=== PATIENT | female | born 1950 | race African-American/Black ===

== ENCOUNTER 2017-10-25 01:42 | Emergency (ER) | payer OTHER ==
--- NOTE | 2017-10-25 02:07 | PDOC ---
History of Present Illness - General Stated Complaint: CHEST PAIN Time Seen by Provider: 10/25/17 02:02 History Source: Patient - History of Present Illness Initial Comments: 10/25/17 04:31 67-year-old female with a history of hypertension and CAD presents to the emergency department with her daughter complaining of substernal 8/10 dull intermittent discomfort radiating to the left arm 2 hours while laying in bed resting. Patient states pain is exacerbated with movements and deep inspiration and there are no alleviating factors. Patient took a total of 2 nitroglycerin sublingual 0.4 mg tablets prior to her arrival. One tablet was taken one hour ago without relief. The second tablet was taken approximately 30 minutes ago prior to her arrival to the emergency department without relief. Patient states she usually can take 1 sublingual nitroglycerin tablet which will cause her to belch but the pain was subside. Patient denies nausea/vomiting, fever/chills, visual disturbance, neck pain/stiffness, back pains, shortness of breath, abdominal pains, flank pains, urinary symptoms, prolonged sitting, recent travels. Presenting Symptoms: Chest Pain Past History - Past Medical History Allergies/Adverse Reactions: Allergies Allergy/AdvReac Type Severity Reaction Status Date / Time No Known Allergies Allergy Verified 10/25/17 02:51 Home Medications: Ambulatory Orders Naproxen [Naprosyn -] 500 mg PO HS 06/06/16 Omeprazole 20 mg PO DAILY 06/06/16 Triamterene/Hydrochlorothiazid [Triamterene-Hctz 37.5-25 mg Cp] 1 each PO DAILY 06/06/16 Tramadol HCl [Ultram -] 50 mg PO Q6H #20 tablet MDD 4 06/07/16 HTN: Yes - Suicide/Smoking/Psychosocial Hx Smoking Status: No Smoking History: Never smoked Number of Cigarettes Smoked Daily: 0 Review of Systems - Review of Systems Able to Perform ROS?: Yes Comments:: 10/25/17 04:33 CONSTITUTIONAL: Absent: fever, chills, diaphoresis, generalized weakness, malaise, loss of appetite HEENT: Absent: rhinorrhea, nasal congestion, throat pain, throat swelling, difficulty swallowing, mouth swelling, ear pain, eye pain, visual Changes CARDIOVASCULAR: +CP Absent: loss of consciousness, palpitations, irregular heart rate, peripheral edema RESPIRATORY: Absent: cough, shortness of breath, dyspnea with exertion, orthopnea, wheezing, stridor, hemoptysis GASTROINTESTINAL: Absent: abdominal pain, abdominal distension, nausea, vomiting, diarrhea, constipation, melena, hematochezia GENITOURINARY: Absent: dysuria, frequency, urgency, hesitancy, hematuria, flank pain, genital pain MUSCULOSKELETAL: Absent: myalgia, arthralgia, joint swelling SKIN: Absent: rash, itching, pallor HEMATOLOGIC/IMMUNOLOGIC: Absent: easy bleeding, easy bruising, lymphadenopathy, frequent infections ENDOCRINE: Absent: unexplained weight gain, unexplained weight loss, heat intolerance, cold intolerance NEUROLOGIC: Absent: headache, focal weakness or paresthesias, dizziness, unsteady gait, seizure, mental status changes, bladder or bowel incontinence PSYCHIATRIC: Absent: anxiety, depression, suicidal or homicidal ideation, hallucinations. Is the patient limited Indonesian proficient: No *Physical Exam - Vital Signs Last Vital Signs Temp Pulse Resp BP Pulse Ox 98.0 F 70 18 134/79 98 10/25/17 14:13 10/25/17 14:13 10/25/17 14:13 10/25/17 14:13 10/25/17 14:13 - Physical Exam Comments: 10/25/17 04:33 GENERAL: Well developed, well nourished. Awake and alert. No acute distress. HEENT: Normocephalic, atraumatic. PERRLA, EOMI. No conjunctival pallor. Sclera are non- icteric. Moist mucous membranes. Oropharynx is clear. NECK: Supple. Full ROM. No JVD. Carotid pulses 2+ and symmetric, without bruits. No thyromegaly. No lymphadenopathy. CARDIOVASCULAR: Regular rate and rhythm. No murmurs, rubs, or gallops. Distal pulses are 2+ and symmetric. PULMONARY: No evidence of respiratory distress. Lungs clear to auscultation bilaterally. No wheezing, rales or rhonchi. ABDOMINAL: Soft. Non-tender. Non-distended. No rebound or guarding. No organomegaly. Normoactive bowel sounds. MUSCULOSKELETAL Normal range of motion at all joints. No bony deformities or tenderness. No CVA tenderness. EXTREMITIES: No cyanosis. No clubbing. No edema. No calf tenderness. SKIN: Warm and dry. Normal capillary refill. No rashes. No jaundice. NEUROLOGICAL: Alert, awake, appropriate. Cranial nerves 2-12 intact. No deficits to light touch and temperature in face, upper extremities and lower extremities. No motor deficits in the in face, upper extremities and lower extremities. Normoreflexic in the upper and lower extremities. Normal speech. Toes are down- going bilaterally. Gait is normal without ataxia. PSYCHIATRIC: Cooperative. Good eye contact. Appropriate mood and affect. Heart Score/ECG Review - History History: Slightly suspicious - Electrocardiogram EKG: Normal - Age Age: 45-65 - Risk Factors Risk Factors Heart Score: Yes Hx Hypertension, Yes Hx Obesity Based on the list above the patient has:: 1-2 risk factors - Troponin Troponin: </= normal limit - Score Heart Score - Total: 2 - ECG Intrepretation Rhythm: Regular Rhythm - [place]: Normal ED Treatment Course - LABORATORY CBC & Chemistry Diagram: 10/25/17 02:14 10/25/17 02:14 - ADDITIONAL ORDERS Additional order review: 10/25/17 02:14 RBC 4.73 MCV 87.6 MCHC 33.4 RDW 13.8 MPV 9.8 Neutrophils % 42.6 L Lymphocytes % 42.1 H Monocytes % 12.9 H Eosinophils % 1.2 Basophils % 1.2 - RADIOLOGY Radiology Studies Ordered: Category Date Time Status CHEST X-RAY PORTABLE* [RAD] Stat Radiology 10/25/17 06:07 Completed - Medications Given in the ED: ED Medications Discontinued Medications Generic Name Dose Route Start Last Admin Trade Name Freq PRN Reason Stop Dose Admin Aspirin 325 mg 10/25/17 02:12 10/25/17 02:22 Asa - PO 10/25/17 02:13 325 mg ONCE ONE Administration Aspirin 162 mg 10/25/17 02:14 10/25/17 02:22 Asa - PO 10/25/17 02:15 162 mg ONCE ONE Administration Sodium Chloride 1,000 mls @ 150 mls/hr 10/25/17 02:15 10/25/17 02:22 Normal Saline - IV 150 mls/hr ASDIR JOSEPH Administration Nitroglycerin 0.5 inch 10/25/17 02:44 10/25/17 03:04 Nitro-Bid 2% Paste - TD 10/25/17 02:45 0.5 inch ONCE ONE Administration Progress Note - Progress Note Progress Note: 0350hrs: Pt resting comfortably in bed/sleeping. Will repeat Troponin at 0615hrs. 0558hrs: Spoke to Dr. Arreola/pt's pmd. He will see pt in the ER at 0830hrs. 0700hrs: Signed out to ASHLEY Perry *DC/Admit/Observation/Transfer Diagnosis at time of Disposition: Chest pain - Discharge Dispostion Disposition: TRANSFER ACUTE CARE/OTHER HOSP Condition at time of disposition: Stable - Referrals Referrals: Manish Vega MD [Primary Care Provider] - - Patient Instructions - Post Discharge Activity
[2017-10-25] MEDS ORDERED: ASPIRIN 325 MG TABLET PO ONE (02:12)
[2017-10-25] MEDS ORDERED: ASPIRIN 81 MG CHEWABLE TABLETS PO ONE (02:14)
[2017-10-25] MEDS ORDERED: SODIUM CHLORIDE 1,000 ML IV SCH (02:15)
--- NOTE | 2017-10-25 02:27 | PDOC ---
ED Treatment Course - LABORATORY CBC & Chemistry Diagram: 10/25/17 02:14 10/25/17 02:14 - Medications Given in the ED: ED Medications Discontinued Medications Generic Name Dose Route Start Last Admin Trade Name Alex PRN Reason Stop Dose Admin Aspirin 325 mg 10/25/17 02:12 10/25/17 02:22 Asa - PO 10/25/17 02:13 325 mg ONCE ONE Administration Aspirin 162 mg 10/25/17 02:14 10/25/17 02:22 Asa - PO 10/25/17 02:15 162 mg ONCE ONE Administration Medical Decision Making - Medical Decision Making 10/25/17 02:26 agree with care from ASHLEY García *DC/Admit/Observation/Transfer Diagnosis at time of Disposition: Chest pain - Discharge Dispostion Disposition: TRANSFER ACUTE CARE/OTHER HOSP Condition at time of disposition: Stable - Referrals Referrals: Manish Vega MD [Primary Care Provider] - - Patient Instructions - Post Discharge Activity
[2017-10-25 02:31] LABS: BASO # 0.1 #; BASO % 1.2 % (0-2.0); EOS # 0.1 #; EOS % 1.2 % (0-4.5); LYMPH # 3.2; MCH 29.3 pg (25.7-33.7); MCHC 33.4 g/dl (32.0-36.0); MEAN CELL VOLUME 87.6 fl (80-96); MEAN PLT VOLUME 9.8 fl (7.5-11.1); NEUT # 3.3 #; NEUT % 42.6 % (42.8-82.8); PLATELET COUNT 250 K/MM3 (134-434); RDW 13.8 % (11.6-15.6); WHITE BLOOD COUNT 7.7 K/mm3 (4.0-10.0)
[2017-10-25] MEDS ORDERED: ASPIRIN 81 MG CHEWABLE TABLETS ONE (02:34)
[2017-10-25 02:44] VITALS: BMI 33.5
[2017-10-25 02:44] LABS: INR 1.12 (0.82-1.09); PROTHROMBIN TIME (PATIENT) 12.7 SEC (9.98-11.88)
[2017-10-25] MEDS ORDERED: NITROGLYCERIN 2% OINTMENT - 1GM PACKET TD ONE ×2 (02:44→02:52)
[2017-10-25 02:52] LABS: URINE APPEARANCE CLEAR; URINE BILIRUBIN NEGATIVE (NEGATIVE); URINE BLOOD 1+ (NEGATIVE); URINE COLOR STRAW; URINE GLUCOSE (UA) NEGATIVE (NEGATIVE); URINE KETONE NEGATIVE (NEGATIVE); URINE LEUK ESTERASE NEGATIVE (NEGATIVE); URINE NITRITE NEGATIVE (NEGATIVE); URINE PROTEIN NEGATIVE (NEGATIVE); URINE UROBILINOGEN NEGATIVE mg/dL (0.2-1.0)
[2017-10-25 02:55] LABS: ANION GAP 11 (8-16); BILIRUBIN,TOTAL 0.2 mg/dL (0.2-1.0); CALCIUM 9.7 mg/dL (8.5-10.1); CO2 28 mmol/L (21-32); CREATININE 1.4 mg/dL (0.55-1.02); GLUCOSE,RANDOM 87 mg/dL (74-106); SGPT/ALT 22 U/L (12-78); TOT PROT 7.8 g/dl (6.4-8.2)
[2017-10-25 02:58] LABS: ALK PHOS 89 U/L (45-117); CPK 198 IU/L (26-192); TROPONIN I < 0.02 ng/ml (0.00-0.05)
[2017-10-25 03:01] LABS: URINE RBC <1 /hpf (0-3); URINE WBC 1 /hpf (3-5)
[2017-10-25 03:01] LABS: SGOT/AST 19 U/L (15-37)
[2017-10-25 03:15] LABS: PLATELET ESTIMATE ADEQUATE
--- NOTE | 2017-10-25 07:28 | PDOC ---
*Physical Exam - Vital Signs Last Vital Signs Temp Pulse Resp BP Pulse Ox 98.0 F 68 16 124/70 98 10/25/17 07:26 10/25/17 07:26 10/25/17 07:26 10/25/17 07:26 10/25/17 07:26 ED Treatment Course - LABORATORY CBC & Chemistry Diagram: 10/25/17 02:14 10/25/17 02:14 - ADDITIONAL ORDERS Additional order review: Laboratory Results 10/25/17 10/25/17 10/25/17 02:28 02:14 02:14 PT with INR 12.70 H INR 1.12 Sodium Potassium Chloride Carbon Dioxide Anion Gap BUN Creatinine Creat Clearance w eGFR Random Glucose Calcium Magnesium 1.9 Total Bilirubin AST ALT Alkaline Phosphatase Creatine Kinase Creatine Kinase Index CK-MB (CK-2) Troponin I Total Protein Albumin Urine Color Straw Urine Appearance Clear Urine pH 6.0 Ur Specific [place] 1.004 Urine Protein Negative Urine Glucose (UA) Negative Urine Ketones Negative Urine Blood 1+ H Urine Nitrite Negative Urine Bilirubin Negative Urine Urobilinogen Negative Urine WBC (Auto) 1 Urine RBC (Auto) <1 Ur Epithelial Cells Rare 10/25/17 02:14 PT with INR INR Sodium 137 Potassium 4.6 Chloride 98 Carbon Dioxide 28 Anion Gap 11 BUN 17 Creatinine 1.4 H Creat Clearance w eGFR 37.28 Random Glucose 87 Calcium 9.7 Magnesium Total Bilirubin 0.2 AST 19 ALT 22 Alkaline Phosphatase 89 Creatine Kinase 198 H Creatine Kinase Index 1.3 CK-MB (CK-2) 2.736 Troponin I < 0.02 Total Protein 7.8 Albumin 4.0 Urine Color Urine Appearance Urine pH Ur Specific [place] Urine Protein Urine Glucose (UA) Urine Ketones Urine Blood Urine Nitrite Urine Bilirubin Urine Urobilinogen Urine WBC (Auto) Urine RBC (Auto) Ur Epithelial Cells 10/25/17 02:14 RBC 4.73 MCV 87.6 MCHC 33.4 RDW 13.8 MPV 9.8 Neutrophils % 42.6 L Lymphocytes % 42.1 H Monocytes % 12.9 H Eosinophils % 1.2 Basophils % 1.2 - Medications Given in the ED: ED Medications Discontinued Medications Generic Name Dose Route Start Last Admin Trade Name Freq PRN Reason Stop Dose Admin Aspirin 325 mg 10/25/17 02:12 10/25/17 02:22 Asa - PO 10/25/17 02:13 325 mg ONCE ONE Administration Aspirin 162 mg 10/25/17 02:14 10/25/17 02:22 Asa - PO 10/25/17 02:15 162 mg ONCE ONE Administration Nitroglycerin 0.5 inch 10/25/17 02:44 10/25/17 03:04 Nitro-Bid 2% Paste - TD 10/25/17 02:45 0.5 inch ONCE ONE Administration Medical Decision Making - Medical Decision Making 10/25/17 08:20 Sign out received sign out from ASHLEY García. Was waiting for second troponin. Negative at this time. Waiting for Dr. Vega to come and evaluate the patient. 10/25/17 09:[address] Vega 10/25/17 11:[address] Vega, defers to Dr. Camacho, pt. family preservation caseworker. Would like pt. to be transferred for cardiac cath given boarderline positive nuclear stress test done in July of this year. Reported ST depressions in V3 and V4 at that time. Pt. reports pain a 2/10 at this time and that she is feeling well. EKG: NSR, rate 64 bpm. Normal intervals, axis. No acute ST-T wave changes. *DC/Admit/Observation/Transfer - Referrals Referrals: Manish Vega MD [Primary Care Provider] - - Patient Instructions - Post Discharge Activity
[2017-10-25 07:55] LABS: CPK 157 IU/L (26-192); TROPONIN I < 0.02 ng/ml (0.00-0.05)
--- NOTE | 2017-10-25 13:02 | EKG ---
Test Reason : Blood Pressure : / mmHG Vent. Rate : 064 BPM Atrial Rate : 064 BPM P-R Int : 154 ms QRS Dur : 078 ms QT Int : 424 ms P-R-T Axes : 040 030 054 degrees QTc Int : 437 ms NORMAL SINUS RHYTHM NORMAL ECG NO PREVIOUS ECGS AVAILABLE Confirmed by TOM BURGOS MD ([id number]) on 10/25/2017 1:02:39 PM Referred By: Confirmed By:TOM BURGOS MD
[2017-10-25 13:21] LABS: URINE LEUK ESTERASE Negative (NEGATIVE)
[2017-10-25 14:14] VITALS: BP 134/79; PULSE 70; TEMP 98
== END 2017-10-25 15:38 | disposition short-term general hospital (02) ==
LOC: JER 01:42
DX: R07.9 Chest pain, unspecified (principal); I10 Essential (primary) hypertension; I25.10 Atherosclerotic heart disease of native coronary artery without angina pectoris
CPT/HCPCS: 36415; 71010-TC; 80053; 81003; 81015; 82550; 82553; 83735; 84484; 85025; 85610; 93005; 93010; 99285-25

== ENCOUNTER 2021-04-18 15:55 | Observation (INO) | payer OTHER ==
[2021-04-18 17:24] LABS: BASO % 0.8 % (0-2.0); EOS % 0.9 % (0-4.5); HEMATOCRIT 42.3 % (32.4-45.2); HEMOGLOBIN 14.3 GM/dL (10.7-15.3); MCH 29.4 pg (25.7-33.7); MCHC 33.7 g/dl (32.0-36.0); MEAN CELL VOLUME 87.3 fl (80-96); MEAN PLT VOLUME 9.3 fl (7.5-11.1); MONO % 8.2 % (3.8-10.2); NEUT % 60.1 % (42.8-82.8); PLATELET COUNT 298 10^3/uL (134-434); RBC 4.84 M/mm3 (3.60-5.2); RDW 13.9 % (11.6-15.6); WHITE BLOOD COUNT 8.9 K/mm3 (4.0-10.0)
[2021-04-18] MEDS ORDERED: SODIUM CHLORIDE 1,000 ML IV STA (17:26)
[2021-04-18 17:30] LABS: INR 0.98 (0.83-1.09); PROTHROMBIN TIME (PATIENT) 12.1 SEC (9.7-13.0)
[2021-04-18 17:33] LABS: ACTIVATED PTT 32.4 SECONDS (25.2-36.5)
[2021-04-18 17:42] LABS: CHLORIDE 106 mmol/L (98-107); SODIUM 141 mmol/L (136-145)
[2021-04-18 17:44] LABS: ANION GAP 7 MMOL/L (8-16); BLOOD UREA NITROGEN 12.2 mg/dL (7-18); CALCIUM 9.1 mg/dL (8.5-10.1); CO2 28 mmol/L (21-32); GLUCOSE,RANDOM 92 mg/dL (74-106)
[2021-04-18 17:45] LABS: ALBUMIN 3.9 g/dl (3.4-5.0); MAGNESIUM 2.2 mg/dL (1.8-2.4)
[2021-04-18 17:47] LABS: CREATININE 0.8 mg/dL (0.55-1.3); PHOSPHOROUS 3.1 mg/dL (2.5-4.9); SGOT/AST 16 U/L (15-37); SGPT/ALT 24 U/L (13-61)
[2021-04-18] MEDS ORDERED: ASPIRIN COATED 81 MG TABLET.EC PO ONE (17:48)
[2021-04-18 17:49] LABS: BILIRUBIN,TOTAL 0.2 mg/dL (0.2-1); TOT PROT 7.7 g/dl (6.4-8.2)
[2021-04-18 17:50] LABS: ALK PHOS 84 U/L (45-117)
[2021-04-18 18:00] VITALS: BMI 35.9
[2021-04-18] MEDS ORDERED: ASPIRIN COATED 81 MG TABLET.EC ONE (18:09)
[2021-04-18 18:45] LABS: N-TERMINAL BNP 123.7 pg/ml (5-125)
[2021-04-18] MEDS ORDERED: ENOXAPARIN NA (PORCINE) 40 MG/0.4 ML DISP.SYRIN SQ ONE (20:54)
[2021-04-18] MEDS ORDERED: ENOXAPARIN NA (PORCINE) 40 MG/0.4 ML DISP.SYRIN SQ SCH (21:00)
[2021-04-18] MEDS ORDERED: FAMOTIDINE 20 MG TABLET PO SCH (21:15)
[2021-04-19 01:48] LABS: EPI CELLS 8 /uL (0-25.1); HYALINE CASTS 0 /uL (0-3.1); URINE APPEARANCE CLEAR; URINE BACTERIA 78 /uL (0-1359); URINE BILIRUBIN NEGATIVE (NEGATIVE); URINE COLOR YELLOW; URINE GLUCOSE (UA) NEGATIVE (NEGATIVE); URINE KETONE NEGATIVE (NEGATIVE); URINE LEUK ESTERASE 1+ (NEGATIVE); URINE NITRITE NEGATIVE (NEGATIVE); URINE PROTEIN NEGATIVE (NEGATIVE); URINE RBC 1080 /uL (0-23.9); URINE UROBILINOGEN 0.2 mg/dL (0.2-1.0); URINE WBC 199 /uL (0-25.8)
[2021-04-19 07:25] LABS: BASO % 0.9 % (0-2.0); EOS % 1.6 % (0-4.5); HEMATOCRIT 40.6 % (32.4-45.2); HEMOGLOBIN 13.7 GM/dL (10.7-15.3); LYMPH % 32.5 % (8-40); MCH 29.5 pg (25.7-33.7); MCHC 33.8 g/dl (32.0-36.0); MEAN CELL VOLUME 87.5 fl (80-96); MEAN PLT VOLUME 8.8 fl (7.5-11.1); MONO % 7.6 % (3.8-10.2); NEUT % 57.4 % (42.8-82.8); PLATELET COUNT 280 10^3/uL (134-434); RBC 4.64 M/mm3 (3.60-5.2); WHITE BLOOD COUNT 8.3 K/mm3 (4.0-10.0)
[2021-04-19 07:47] LABS: CALCIUM 8.9 mg/dL (8.5-10.1); MAGNESIUM 2.2 mg/dL (1.8-2.4)
[2021-04-19 07:48] LABS: CREATININE 0.7 mg/dL (0.55-1.3)
[2021-04-19 07:52] LABS: BLOOD UREA NITROGEN 12.8 mg/dL (7-18)
[2021-04-19 07:53] LABS: ALBUMIN 3.6 g/dl (3.4-5.0)
[2021-04-19 07:54] LABS: BILIRUBIN,TOTAL 0.7 mg/dL (0.2-1)
[2021-04-19 07:56] LABS: PHOSPHOROUS 3.6 mg/dL (2.5-4.9)
[2021-04-19] MEDS ORDERED: amLODIPine BESYLATE 5 MG TABLET (FP) PO SCH (10:00)
[2021-04-19] MEDS ORDERED: metoPROLOL SUCCINATE 25 MG TAB.SR.24H (FP) PO SCH (11:30)
[2021-04-19] MEDS ORDERED: VALSARTAN 40 MG TABLET PO SCH (11:30)
[2021-04-19 15:12] VITALS: BP 141/84; PULSE 77; TEMP 97.8
== END 2021-04-19 15:17 | disposition home or self-care (01) ==
LOC: JER 15:55 → JERBED 18:00 → INTOOBSV 18:00 → UNDOADMOB 18:00 → JERBED 04-19 01:00 → J4S 04-19 01:00 → JERBED 04-19 14:05 → J4S 04-19 14:05
PROVIDERS: ADMIT Internal Medicine; ATTEND Student in an Organized Health Care Education/Training Program
PROC: 3E0337Z Introduction of Electrolytic and Water Balance Substance into Peripheral Vein, Percutaneous Approach (ICD-10-PCS; principal; 2021-04-19)
PROC: 3E013GC Introduction of Other Therapeutic Substance into Subcutaneous Tissue, Percutaneous Approach (ICD-10-PCS; 2021-04-19)
DX: R07.89 Other chest pain (principal); R00.2 Palpitations; R06.02 Shortness of breath; R00.0 Tachycardia, unspecified; I45.10 Unspecified right bundle-branch block; I10 Essential (primary) hypertension; I25.10 Atherosclerotic heart disease of native coronary artery without angina pectoris; E78.5 Hyperlipidemia, unspecified; Z98.61 Coronary angioplasty status; E66.9 Obesity, unspecified; Z68.36 Body mass index [BMI] 36.0-36.9, adult; I51.89 Other ill-defined heart diseases
CPT/HCPCS: 36415; 71045-TC-FY; 80053; 80061; 81003; 82550; 82553; 83721; 83735; 83880; 84100; 84439; 84443; 84484; 85025; 85379; 85610; 85730; 93005; 93010; 96360; 96372; 99285-25; C9803; G0378; U0003; U0005

== ENCOUNTER → 2022-01-25 | Day surgery (SDC) | payer OTHER | END | disposition home or self-care (01) | LOC: JRADUS-SUR 08:43 | PROVIDERS: ATTEND Internal Medicine | PROC: 0HBT3ZX Excision of Right Breast, Percutaneous Approach, Diagnostic (ICD-10-PCS; principal; 2022-01-25) | DX: N60.11 Diffuse cystic mastopathy of right breast (principal); N60.31 Fibrosclerosis of right breast; N60.32 Fibrosclerosis of left breast; N64.89 Other specified disorders of breast; N63.10 Unspecified lump in the right breast, unspecified quadrant | CPT/HCPCS: 19083; 74178-TC; 87899; 88305-TC; A4648; C1887; Q9967 ==

== ENCOUNTER 2022-12-30 07:07 | Emergency (ER) | payer OTHER ==
[2022-12-30 07:24] VITALS: BP 163/84; PULSE 81; RESP 20; BMI 34.7
[2022-12-30] MEDS ORDERED: LIDOCAINE 5% TOPICAL PATCH TP ONE (08:57)
[2022-12-30] MEDS ORDERED: LIDOCAINE 5% TOPICAL PATCH ONE (09:00)
[2022-12-30] MEDS ORDERED: CYCLOBENZAPRINE HCL 10 MG TABLET (FP) PO ONE (09:05)
[2022-12-30] MEDS ORDERED: ACETAMINOPHEN 650 MG/20.3 ML ORAL SOLUTION (CUPS) PO ONE (09:56)
[2022-12-30] MEDS ORDERED: CYCLOBENZAPRINE HCL 10 MG TABLET (FP) ONE (10:04)
[2022-12-30] MEDS ORDERED: ACETAMINOPHEN 325 MG TABLET (FP) ONE (10:04)
[2022-12-30] MEDS ORDERED: DEXAMETHASONE SOD PHOSPHATE 10 MG/1 ML VIAL IM ONE (12:13)
[2022-12-30] MEDS ORDERED: KETOROLAC TROMETHAMINE 30 MG/1 ML VIAL IM ONE (12:13)
[2022-12-30] MEDS ORDERED: KETOROLAC TROMETHAMINE 30 MG/1 ML VIAL ONE (12:19)
[2022-12-30] MEDS ORDERED: DEXAMETHASONE SOD PHOSPHATE 10 MG/1 ML VIAL ONE (12:19)
[2022-12-30] MEDS ORDERED: DEXAMETHASONE SOD PHOSPHATE 4 MG/1 ML VIAL IM ONE (12:21)
[2022-12-30] MEDS ORDERED: LIDOCAINE PATCH REMOVAL MC SCH (22:00)
== END 2022-12-30 12:53 | disposition home or self-care (01) ==
LOC: JER 07:07
PROC: 3E0233Z Introduction of Anti-inflammatory into Muscle, Percutaneous Approach (ICD-10-PCS; principal; 2022-12-30)
PROC: 3E0233Z Introduction of Anti-inflammatory into Muscle, Percutaneous Approach (ICD-10-PCS; 2022-12-30)
DX: M54.50 Low back pain, unspecified (principal); G89.29 Other chronic pain; M25.552 Pain in left hip
CPT/HCPCS: 72131-TC; 72170-TC-FY; 73521-TC-FY; 99284-25; J1100

== ENCOUNTER 2024-01-30 14:36 | Emergency (ER) | payer BC, OTHER ==
[2024-01-30 14:41] VITALS: RESP 18; BMI 35.7
[2024-01-30] MEDS ORDERED: CYCLOBENZAPRINE HCL 10 MG TABLET (FP) ONE (16:01)
[2024-01-30] MEDS ORDERED: KETOROLAC TROMETHAMINE 30 MG/1 ML VIAL ONE (16:01)
[2024-01-30] MEDS: KETOROLAC TROMETHAMINE 30 MG/1 ML VIAL IM ONE (16:10)
[2024-01-30] MEDS: CYCLOBENZAPRINE HCL 10 MG TABLET (FP) PO ONE (16:10)
[2024-01-30 16:11] VITALS: BP 156/82; PULSE 77; TEMP 97.6
== END 2024-01-30 16:43 | disposition home or self-care (01) ==
LOC: JER 14:36
PROC: 3E0233Z Introduction of Anti-inflammatory into Muscle, Percutaneous Approach (ICD-10-PCS; principal; 2024-01-30)
DX: M54.42 Lumbago with sciatica, left side (principal); G89.29 Other chronic pain
CPT/HCPCS: 99284-25